=== PATIENT | male | born 1995 | race Caucasian/White ===

== ENCOUNTER 2019-10-25 13:03 | Outpatient (CLI) | payer OTHER ==
--- NOTE | 2019-10-25 13:51 | ULT ---
SCROTAL ULTRASOUND INDICATION: Palpable abnormality in the right hemiscrotum that comes and goes; history of right-sided scrotal cyst TECHNIQUE: Grayscale, color Doppler spectral Doppler images were obtained of the scrotum. COMPARISON: None. FINDINGS: Right Testicle: Size: 3.6 x 5.7 x 2.6 cm. Flow: There is normal vascular flow to the right testicle Hydrocele: No right-sided hydrocele is evident Epididymis: The right epididymis appears within normal limits. Left Testicle: Size: 3.9 x 5.3 x 2.8 cm. Flow: There is normal vascular flow to left testicle. Hydrocele: No left sided hydrocele seen. Epididymis: The left epididymis appears within normal limits. Additional findings: None. Impression: 1. No evidence of testicular torsion or intratesticular mass.
== END 2019-10-25 13:04 | disposition home or self-care (01) ==
LOC: SCSULT 13:03
PROVIDERS: ATTEND Family Medicine
DX: N50.89 Other specified disorders of the male genital organs (principal)
CPT/HCPCS: 76870; 93976